=== PATIENT | male | born 1985 | race Two or more races ===

== ENCOUNTER 2018-05-09 15:41 | Emergency (ER) | payer SELFPAY ==
[~2018-05-09] VITALS: Ht 167.6 cm; Wt 76.0 kg
[2018-05-09] MEDS ORDERED: IBUPROFEN 600MG TABLET PO ONE (18:15)
[2018-05-09 18:39] VITALS: BP 112/68
== END 2018-05-09 18:56 | disposition home or self-care (01) ==
LOC: ER 15:41
DX: M54.2 Cervicalgia (principal); F99 Mental disorder, not otherwise specified; M25.511 Pain in right shoulder; G58.9 Mononeuropathy, unspecified; I10 Essential (primary) hypertension; I51.9 Heart disease, unspecified
CPT/HCPCS: 99283